=== PATIENT | female | born 2000 | race Caucasian/White ===

== ENCOUNTER 2021-12-31 19:33 | Emergency (ER) | payer OTHER ==
[2021-12-31 21:22] LABS: BASOPHIL 0.3 % (0-2); EOSINOPHIL 0.1 % (0-5); HCT 39.7 % (37.0-47.0); HGB 13.7 g/dl (12.5-16.0); LYMPHOCYTE 18.6 % (15-48); MCH 32.2 pg (25.0-31.0); MCHC 34.5 g/dL (32.0-36.0); MCV 93.4 fL (78.0-100.0); MONOCYTE 4.4 % (0-12); MPV 11.5 fL (6.0-9.5); NEUTROPHIL 76.3 % (41-80); NRBC 0; PLT 277 K/uL (150-400); RBC 4.25 M/uL (4.20-5.40); RDW 11.8 % (11.5-14.0); WBC 9.4 K/uL (4.0-10.5)
[2021-12-31 21:31] LABS: BILIRUBIN NEGATIVE (NEGATIVE); BLOOD NEGATIVE Ery/uL (NEGATIVE); CLARITY CLEAR (CLEAR); COLOR YELLOW (YELLOW); GLUCOSE (U) NORMAL (NORMAL); LEUKOCYTES NEGATIVE Leu/uL (NEGATIVE); NITRITE NEGATIVE (NEGATIVE); PROTEIN TRACE (LOW) mg/dL (NEGATIVE)
[2021-12-31 21:33] LABS: AMPHETAMINES NEGATIVE (NEGATIVE); BARBITURATES NEGATIVE (NEGATIVE); ECSTASY (MDMA) NEGATIVE (NEGATIVE); MARIJUANA (THC) POSITIVE (NEGATIVE); METHADONE NEGATIVE (NEGATIVE); OPIATES NEGATIVE (NEGATIVE); OXYCODONE NEGATIVE (NEGATIVE)
[2021-12-31 21:40] LABS: BUN 13 mg/dL (7-18); BUN/CREAT RATIO (CALC) 21.3 RATIO; CHLORIDE 102 mmol/L (98-107); CO2 (BICARBONATE) 24 mmol/L (21-32); CREATININE 0.61 mg/dL (0.51-0.95); GLUCOSE 92 mg/dL (74-106); POTASSIUM 3.7 mmol/L (3.5-5.1)
[2021-12-31 21:42] LABS: ACETAMINOPHEN (TYLENOL) < 2.0 ug/mL (10.0-30.0)
== END 2022-01-01 15:59 | disposition other institution (70) ==
LOC: FER 19:33
PROVIDERS: Nurse Practitioner Family
DX: T51.0X2A Toxic effect of ethanol, intentional self-harm, initial encounter (principal); Z20.822 Contact with and (suspected) exposure to COVID-19; Z91.018 Allergy to other foods
CPT/HCPCS: 36415; 80048; 80305; 81003; 85025; 99285; G0480; U0002